=== PATIENT | female | born 1975 | race Caucasian/White ===

== ENCOUNTER 2019-04-12 13:28 | Day surgery (SDC) | payer BC, SELFPAY ==
--- NOTE | 2019-04-12 13:03 | DCINST_ITS ---
Discharge Diet: No Restrictions Discharge Activity: May not drive while taking narcotic pain medications., May Shower, - - no tub bathing, no swimming, no hot tub. May resume sexual activity in: 4-6 weeks Lifting Restrictions: 5 pounds for 4 weeks Additional Activity Instructions:: no exercise or strenuous activity. ok to walk up and down stairs. Call your doctor if your incision/area has: Continuous Slow Oozing, Sudden Increased Bleeding, Foul Smelling Discharge Call your doctor if you observe: Fever of 101 or Higher, Inability to urinate, Shortness of breath, Chest pain, Calf discomfort, Uncontrolled pain Allergies/Adverse Reactions: Allergies codeine Allergy (Verified 04/11/19 08:36) Unknown Penicillins Allergy (Verified 04/11/19 08:36) Unknown Medications to take at Discharge Ashroganda 1 tab PO DAILY 04/11/19 Cetirizine HCl [Zyrtec] 10 mg PO DAILY 04/11/19 Cholecalciferol (Vitamin D3) [Vitamin D3] 5,000 unit PO DAILY 04/11/19 Collegen +C 1 tab PO DAILY 04/11/19 Duloxetine Hcl [Cymbalta] 60 mg PO DAILY 04/11/19 Magnesium Oxide [Magnesium] 1,200 mg PO DAILY 04/11/19 Melatonin/Pyridoxine HCl (B6) [Melatonin 10 mg Tablet] 1 each PO QHS 04/11/19 Prasterone (Dhea) [Dhea] 30 mg PO DAILY 04/11/19 Progesterone, Micronized [Prometrium] 100 mg PO QHS 04/11/19 Ps100 1 cap PO TID 04/11/19 Reloea 1 tab PO DAILY 04/11/19 Riboflavin (Vitamin B2) [Vitamin B-2] 100 mg PO DAILY 04/11/19 Theanine [l-Theanine] 1 tab PO DAILY 04/11/19 Thyroid [[place] Thyroid] 60 mg PO DAILY 04/11/19 Topiramate [Trokendi Xr] 100 mg PO QHS 04/11/19 Orders to be completed after discharge: Partial Thromboplast Time Time Frame: 04/12/19, Location: Laboratory CBC-Complete Blood Cnt No Diff Time Frame: 04/12/19, Location: Laboratory Liver Profile Time Frame: 04/12/19, Location: Laboratory Prothrombin Time w/INR Time Frame: 04/12/19, Location: Laboratory Thyroid Stim Hormone (TSH) Time Frame: 04/12/19, Location: Laboratory ,Urine Time Frame: 04/12/19, Location: Laboratory Primary Care Physician: Elisabeth Butterfield NP-C [Primary Care Provider] - Test Results: Test results from this visit will be discussed in further detail at your follow- up appointment, if applicable. Please Follow Up With: Jasmin Ordaz MD When: 2 weeks, call office for appt. Proposed Discharge Date: 04/12/19
--- NOTE | 2019-04-12 13:03 | PCM.OPRPT ---
Problem List (1) KAYLENE (stress urinary incontinence, female) Status: Acute (2) Urethral hypermobility Status: Acute Report of Operation Date of Procedure: 04/12/19 Pre-Operative Diagnosis: stress urinary incontinence, urethral hypermobility Post-Operative Diagnosis: same Surgery/Procedure Performed:: midurethral sling, cystoscopy Description of Surgical Findings:: no mesh in urethra or bladder. flat sling. good position. Type of Anesthesia:: General Estimated Blood Loss (mL): 25cc Description of Procedure: The patient is a 43-year-old female who presented to the office with significant urinary incontinence. After further evaluation was determined that she has intrinsic sphincter deficiency and stress urinary incontinence. After discussing all the risk benefits and alternatives she agreed to proceed with mid urethral sling insertion. Patient was taken to the operating room and placed in the operating room table. Anesthesia monitored the head, neck, airway, IV access and vital signs throughout the case. Once anesthesia was a probably administered patient was placed into dorsal lithotomy in Trendelenburg position. She was prepped and draped in usual sterile fashion. A 16 [place] Cheema catheter was inserted to straight drain and the bladder was emptied. The mid urethra was injected submucosally for hydrostatic dissection and hemostatic control. A midline incision was made approximately 1.5 cm in length. Both sharp and blunt dissection was performed on either side of the urethra. Using the trochars, the alters mid urethral sling was inserted without difficulty into the bilateral obturator complexes. The sling was flat against the urethra without tension. The tensioning suture was cut. The midline incision was closed using running interlocking 2-0 Vicryl. A cystourethroscopy was then performed revealing no evidence of mucosal abnormality. There is no mesh identified within the urinary bladder or the urethra. A small amount of fluid was left in the bladder. The patient was then awakened and taken to the recovery room in good condition. There were no complications during this procedure. Grafts/Implants Used: Altis midurethral sling - Complications none - Admit VTE Documentation VTE Present on Admission: Yes VTE Mechan Device Prophylaxis: SCD's VTE Pharm Prophylaxis ordered?: No Reason prophylaxis not ordered:: Treatment Not Indicated
[2019-04-12 13:58] LABS: Internal QC Validated? YES +Cl - CLEAR BKGD; Pregnancy, Urine Negative Negative
[2019-04-12 14:00] VITALS: BP 92/58; PULSE 61; RESP 12; TEMP 37.6; O2SAT 100; BMI 25.0
[2019-04-12 14:03] LABS: Hematocrit 37.1 % (37-47); Hemoglobin 12.3 g/dl (12.0-15.0); Mean Corp Hgb Conc 33.2 g/gl (32-36); Mean Corpuscular Hgb 30.8 pg (27.0-32.0); Platelet Count 123 K/mm3 (150-450); RBC Distribution Width CV 12.4 % (11.6-14.6); RBC Distribution Width SD 40.9 fl (35.1-43.9); Red Blood Count 3.99 M/mm3 (4.2-5.4); White Blood Count 5.4 K/mm3 (4.4-11.0)
[2019-04-12 14:09] LABS: International Normalized Ratio 1.1; Prothrombin Time (Protime)PT. 14.3 SECONDS (11.7-14.9)
[2019-04-12 14:10] LABS: Partial Thromboplast Time 32.4 Seconds (24.1-36.2)
[2019-04-12 14:12] LABS: Scan Indicated on CBC? Y/N NO
[2019-04-12 14:25] LABS: AST(SGOT) 14 U/L (15-37); Alanine Aminotransfer ALT/SGPT 19 U/L (13-56); Albumin, Serum 3.7 g/dL (3.2-5.0); Alkaline Phosphatase 80 U/L (45-117); Bilirubin, Direct 0.25 mg/dL (0.00-0.30); Globulin 2.8 g/dL (2.2-4.2); Protein, Total 6.5 g/dL (6.4-8.2); Thyroid Stim Hormone (TSH) 1.69 uIU/mL (0.358-3.74)
[2019-04-12] MEDS: Ciprofloxacin 400 MG/200 ML BAG 200 MG IV (14:30)
[2019-04-12 15:32] VITALS: BP 82/38; BP 92/58; PULSE 65; RESP 14; TEMP 36.6; O2SAT 99
[2019-04-12 15:45] VITALS: BP 87/49; BP 92/58; PULSE 62; RESP 14; O2SAT 100
[2019-04-12 16:00] VITALS: BP 83/45; BP 92/58; PULSE 71; RESP 16; O2SAT 100
[2019-04-12 16:15] VITALS: BP 86/50; BP 92/58; PULSE 66; RESP 16; TEMP 36.5; O2SAT 100
--- NOTE | 2019-04-12 19:53 | SUR.PHASEII ---
18g steiner cath inserted per Dr's orders. 950cc clear yellow urine drained to gravity. Cath secure placed. pt clemente very well. pt and instructed on steiner removal, instructed to removed evening before bed. pt and verbalize understanding.
[2019-04-12 19:55] VITALS: BP 89/48; BP 92/58; PULSE 58; RESP 18; TEMP 37.2; O2SAT 100
== END 2019-04-12 19:57 | disposition home or self-care (01) ==
LOC: SDC 13:30 → AC 13:32
PROVIDERS: Anesthesiology; Family Provider Nurse Practitioner Family; PCP Nurse Practitioner Family; Referring Provider Urology; Visit Provider Urology
PROC: 0TJB8ZZ Inspection of Bladder, Via Natural or Artificial Opening Endoscopic (ICD-10-PCS; CPT 57288; principal; 2019-04-12 15:15)
DX: N39.3 Stress incontinence (female) (male) (principal); N36.41 Hypermobility of urethra; Z79.899 Other long term (current) drug therapy; E07.9 Disorder of thyroid, unspecified; G43.909 Migraine, unspecified, not intractable, without status migrainosus; N36.42 Intrinsic sphincter deficiency (ISD)
CPT/HCPCS: 57288; 36415; 80076; 81025; 84443; 85027; 85610; 85730; J7120; J0744; J2405

== ENCOUNTER 2020-03-23 15:13 | Emergency (ER) | payer BC, SELFPAY ==
[2020-03-23 15:14] VITALS: BP 115/60; PULSE 73; PULSE 74; RESP 18; TEMP 36.8; O2SAT 100; BMI 27.3
[2020-03-23 15:17] VITALS: BP 115/60; PULSE 74; RESP 18; TEMP 36.8; O2SAT 100
--- NOTE | 2020-03-23 15:37 | ED.VIS.GEN ---
History of Present Illness Chief Complaint: Complaint Detail of Chief Complaint: Left lower quadrant pain Informant: Patient Onset: Days Context: Gradual Onset Current Severity: Moderate Maximum Severity: Severe Narrative: Patient presents with left lower quadrant pain for the past 2 days. She also had haziness to her urine. She called her urologist and was started on Bactrim. Patient had a bladder sling placed a year ago. Patient reports worsened left lower quadrant pain that seems to wax and wane. She has had some chills. She denies change in bowel habits. She has tried to increase fluid intake but has not noted increased urine output. She denies other vaginal discharge. - Past Medical History (1) Endometriosis Status: Chronic (2) Hypothyroid Status: Chronic (3) GERD (gastroesophageal reflux disease) Status: Chronic Past Medical History - Allergies and Home Meds Allergies/Adverse Reactions: Allergies codeine Allergy (Verified 03/23/20 15:13) Unknown hydromorphone [From Dilaudid] Allergy (Verified 03/23/20 15:14) Low blood pressure MY HEART RATE DROPS TO NOTHING. Penicillins Allergy (Verified 03/23/20 15:13) Unknown Primary Care Physician: Elisabeth Butterfield NP-C [Primary Care Provider] - Doctors: Dr. Ordaz Prior records reviewed: Yes Surgical History: appendectomy, cholecystectomy Smoking Status: Never smoker Review of Systems General: Reports: Chills. Denies: Fever Eyes: Denies: Visual changes - bilaterally ENT: Denies: Bilateral ear pain Cardiovascular: Denies: Chest pain Respiratory: Denies: Dyspnea, Cough Gastrointestinal: Reports: Abdominal pain, Diarrhea. Denies: Nausea, Vomiting Genitourinary: Reports: - - Hazy urine Musculoskeletal: Denies: Back pain, Extremity Pain Skin: Denies: Rash Neurological: Denies: Headache Hematologic: Denies: Easy bruising Physical Exam Vital Signs/Narrative: Vital Signs Temp Pulse Resp BP Pulse Ox 03/23/20 15:17 98.3 F 74 18 115/60 100 03/23/20 15:14 98.3 F 74 18 115/60 100 Inital Vital Signs reviewed: Yes General: Well nourished, Well developed Head: Normocephalic ENT: Moist mucous membranes Neck: Supple Cardiovascular: Regular rate, Regular rhythm Respiratory: No distress, CTA bilaterally Abdomen: Soft, Tender - Significant tenderness in the left lower quadrant., Hypoactive bowel sounds. Negative for: Guarding, Rebound tenderness Extremities: Nontender Skin: Normal color Neurological: Alert, Oriented x3 Psychological: Normal affect Diagnostic/Tx/Re-eval Impressions Transvaginal US 03/23/20 15:40 IMPRESSION: 1. IUD in satisfactory position within otherwise normal uterus. 2. Bilateral ovarian cysts. 3. Mild to moderate free fluid in the posterior cul-de-sac. Electronically Signed: Joe Jaimes DO at 16:51 EDT Tel [phone], Service support , 03/23/20 15:40 Transvaginal Non- [US] Stat Laboratory Results 03/23/20 03/23/20 03/23/20 16:05 16:06 16:06 WBC 4.9 RBC 3.90 L Hgb 12.1 Hct 36.8 L MCV 94.4 MCH 31.0 MCHC 32.9 RDW Std Deviation 44.1 H RDW Coeff of Lu 12.8 Plt Count 146 L MPV 12.8 H Immature Gran % (Auto) 0.200 Neut % (Auto) 67.6 Lymph % (Auto) 19.4 [place] % (Auto) 8.5 Eos % (Auto) 3.9 Baso % (Auto) 0.4 Absolute Neuts (auto) 3.3 Absolute Lymphs (auto) 0.94 Nucleated RBC % 0 Sodium 137 Potassium 3.4 L Chloride 107 Carbon Dioxide 23.0 Anion Gap 7 BUN 9 Creatinine 1.05 H Estim Creat Clear Calc 66.49 Est GFR (MDRD) Af Amer 73 Est GFR (MDRD) Non-Af 60 BUN/Creatinine Ratio 8.6 L Glucose 83 Calcium 8.3 L Serum , Qual Urine Color Yellow Urine Clarity Sl. Cloudy Urine pH 6.5 Ur Specific [place] 1.005 Urine Protein Negative Urine Glucose (UA) Normal Urine Ketones Negative Urine Occult Blood Negative Urine Nitrite Negative Urine Bilirubin Negative Urine Urobilinogen Normal Ur Leukocyte Esterase 25 H Urine RBC 0 SEEN Urine WBC 0-5 SEEN Ur Squamous Epith Cells 0-5 SEEN Urine Bacteria 0 SEEN Urine Mucus 0 SEEN 03/23/20 16:06 WBC RBC Hgb Hct MCV MCH MCHC RDW Std Deviation RDW Coeff of Lu Plt Count MPV Immature Gran % (Auto) Neut % (Auto) Lymph % (Auto) [place] % (Auto) Eos % (Auto) Baso % (Auto) Absolute Neuts (auto) Absolute Lymphs (auto) Nucleated RBC % Sodium Potassium Chloride Carbon Dioxide Anion Gap BUN Creatinine Estim Creat Clear Calc Est GFR (MDRD) Af Amer Est GFR (MDRD) Non-Af BUN/Creatinine Ratio Glucose Calcium Serum , Qual NEGATIVE Urine Color Urine Clarity Urine pH Ur Specific [place] Urine Protein Urine Glucose (UA) Urine Ketones Urine Occult Blood Urine Nitrite Urine Bilirubin Urine Urobilinogen Ur Leukocyte Esterase Urine RBC Urine WBC Ur Squamous Epith Cells Urine Bacteria Urine Mucus - Medical Decision Making Patient was given morphine and Zofran for pain and nausea. She does have evidence of bilateral ovarian cysts along with mild to moderate free fluid in the pelvis. I spoke with Dr. Bunch, on-call for CONTRACT ASSISTANT. Patient will be given [place] to help control pain. She will follow-up in the office. ED Disposition - Plan for ED Patient: Disposition: Home or Assisted Living Diagnosis: Ovarian cyst Instructions: ED Cyst Ovarian Prescriptions: Hydrocodone Bitart/Apap 5-325 [[place] 5MG-325MG] 1 tablet PO Q6H PRN PRN 3 Days #10 tablet PRN Reason: Pain Transmission Status: Sent to [id number] Referrals: Elisabeth Butterfield NP-C [Primary Care Provider] - Sommer Bunch MD [STAFF PHYSICIAN] - 3-5 Days if not improving
--- NOTE | 2020-03-23 15:40 | US_ITS ---
STUDY: ULTRASOUND TRANSVAGINAL CLINICAL: Female, 44 years old. A left-sided pelvic pain. History of IUD. TECHNIQUE: Transvaginal COMPARISON: None. FINDINGS: The uterus is anteverted and midline, measuring 8.2 x 4.4 x 3.9 cm. There is no evidence of myometrial mass. Endometrium is 6 mm in thickness and hyperechoic. There are no endometrial masses, and there is no fluid in the endometrial cavity. There is an IUD in the fundal endometrium. Normal uterine cervix. Normal right ovary, measuring 3.2 x 3.0 x 2.7 cm. There is a 2.1 x 2.6 x 2.3 cm dominant cyst. Normal vascularity on Doppler imaging. Normal left ovary, measuring 6.0 x 4.5 x 2.7 cm. There is a 2.9 x 2.9 x 2.4 cm cyst as well as a 3.4 x 2.4 x 2.5 cm cyst. Normal vascularity on Doppler imaging. There is mild to moderate free fluid in the pelvis. Polycystic ovary disease: No. US/Transvaginal Non- IMPRESSION: 1. IUD in satisfactory position within otherwise normal uterus. 2. Bilateral ovarian cysts. 3. Mild to moderate free fluid in the posterior cul-de-sac. Electronically Signed: Joe Jaimes DO at 16:51 EDT Tel [phone], Service support ,
[2020-03-23] MEDS: 0.9% Normal Saline 1,000 ML 150 ML IV (16:01)
[2020-03-23] MEDS: Morphine 2 MG/ML Syringe IV (16:01)
[2020-03-23] MEDS: Ondansetron 4 MG/2 ML Vial IV (16:01)
[2020-03-23 16:17] VITALS: BP 95/53; PULSE 61; RESP 12; TEMP 36.8; O2SAT 98
[2020-03-23 16:22] LABS: Bacteria 0 SEEN /hpf (None Seen); Mucous, Urine 0 SEEN /hpf (<or=2+); Red Blood Cells-Urine 0 SEEN /hpf (0-5)
[2020-03-23 16:23] LABS: Absolute Lymphocyte Count 0.94 X10^3/uL (0.83-4.51); Absolute Neutrophil Count 3.3 X10^3/uL (2.0-7.7); Basophil# 0.02 X10^3/uL; Basophil% 0.4 % (0-1); Eosinophil# 0.19 X10^3/uL; Eosinophils% 3.9 % (0-5); Hematocrit 36.8 % (37-47); Hemoglobin 12.1 g/dL (12.0-15.0); Lymphocyte # 0.94 X10^3/ul (4.0); Lymphocyte % 19.4 % (19-41); Mean Corp Hgb Conc 32.9 g/dL (32-36); Mean Corpuscular Volume 94.4 fL (81-99); Mean Platelet Vol. 12.8 fl (6.2-12.0); Monocyte# 0.41 X10^3/uL; Monocyte% 8.5 % (0-10); NRBC Flagged by Analyzer 0 % (0-5); Neutrophil # 3.28 X10^3/uL (2.7-7.7); Neutrophil % 67.6 % (47-70); Platelet Count 146 K/mm3 (150-450); RBC Distribution Width CV 12.8 % (11.6-14.6); RBC Distribution Width SD 44.1 fl (35.1-43.9); White Blood Count 4.9 K/mm3 (4.4-11.0)
[2020-03-23 16:24] LABS: Color, Urine Yellow (Yellow); Glucose, Dipstick Normal (Normal); Ketone-Dipstick Negative (Negative); Leukocyte Esterase-Dipstick 25 /ul (Negative); Nitrite-Dipstick Negative (Negative); Occult Blood-Urine Negative /ul (Negative); Protein-Dipstick Negative (Negative); Specific Gravity, Urine 1.005 (1.002-1.030); Urine Bilirubin Dipstick Negative (Negative); Urine Clarity Sl. Cloudy (Clear); Urine Urobilinogen Normal (Normal); Urine pH 6.5 (5.0 - 8.0)
[2020-03-23 16:35] LABS: Anion Gap 7 (5-15); BUN 9 mg/dL (7-18); BUN/Creat Ratio 8.6 RATIO (10-20); Calcium,Total 8.3 mg/dL (8.5-10.1); Chloride 107 mmol/L (98-107); Creatinine, Serum 1.05 mg/dL (0.55-1.02); EST Glomerular Filtration Rate 60 mL/min (>60); Est Glom Filt Rate - Afr Amer 73 mL/min (>60); Estimated Creatinine Clearance 66.49 ml/min; Glucose 83 mg/dL (74-106); Potassium 3.4 mmol/L (3.5-5.1); Sodium Level 137 mmol/L (136-145)
[2020-03-23 16:37] LABS: Internal QC Validated? YES +Cl - CLEAR BKGD; Pregnancy, Serum, hCG Quali. NEGATIVE Negative
[2020-03-23 16:56] LABS: Squamous Epithelial Cells - UA 0-5 SEEN /hpf (5-10); White Blood Cells 0-5 SEEN /hpf (0-5)
[2020-03-23 17:00] VITALS: BP 105/63; PULSE 65; RESP 12; TEMP 36.7; O2SAT 98
[2020-03-23 17:13] VITALS: BP 105/63; PULSE 65; RESP 18; O2SAT 98
[2020-03-23] MEDS: Morphine 4 MG/ML Syringe IV (17:19)
== END 2020-03-23 18:06 | disposition home or self-care (01) ==
PROVIDERS: Emergency Provider Emergency Medicine; PCP Nurse Practitioner Family
DX: N83.201 Unspecified ovarian cyst, right side (principal); N83.202 Unspecified ovarian cyst, left side; N80.9 Endometriosis, unspecified; Z97.5 Presence of (intrauterine) contraceptive device; E03.9 Hypothyroidism, unspecified; K21.9 Gastro-esophageal reflux disease without esophagitis; Z79.899 Other long term (current) drug therapy
CPT/HCPCS: 76830; 80048; 81001; 84703; 85025; 93976; 96361; 96374; 96375; 96376; 99283; J7030; A4216; J2405

== ENCOUNTER 2021-12-19 13:39 | Outpatient (CLI) | payer BC, SELFPAY ==
--- NOTE | 2021-12-19 13:43 | RAD_ITS ---
STUDY: X-RAY - ABDOMEN/PELVIS REASON FOR EXAM: Female, 46 years old. KIDNEY STONES TECHNIQUE: Single AP view of the abdomen / pelvis. COMPARISON: Comparison is made with prior study dated 05/29/2015. FINDINGS: There is an abundance of fecal material throughout the colon. The patient is status post cholecystectomy. An IUD is seen within the pelvis. Normal soft tissue structures. Normal visualized osseous structures. RAD/Abdomen Single View IMPRESSION: Large amount of fecal material is seen in the colon. Electronically Signed: Mayank Mesa MD at 14:52 EST , Service support ,
== END 2021-12-19 23:59 | disposition short-term general hospital (02) ==
PROVIDERS: PCP Nurse Practitioner Family; Referring Provider Urology; Visit Provider Urology
DX: N20.0 Calculus of kidney (principal)
CPT/HCPCS: 74018

== ENCOUNTER → 2024-04-26 | Outpatient (CLI) | payer OTHER, SELFPAY ==
--- NOTE | 2024-04-26 17:00 | US_ITS ---
INDICATION: UTI EXAMINATION: Ultrasound US Kidney(s) complete (eg, kidneys and bladder) TECHNIQUE: Navarro scale and color doppler images were obtained of the kidneys. COMPARISON: None. FINDINGS: RIGHT KIDNEY: 11.9 cm length. There is mild fullness of the renal pelvis, no hydronephrosis. Small echogenic focus likely a calculus, 10 mm. LEFT KIDNEY: 10.6 cm length. There is mild fullness of the renal pelvis, no hydronephrosis. Several small calculi, largest is 7 mm. URINARY BLADDER: Distended. Bladder volume 645 mL. Postvoid volume 6 mL. No wall thickening or debris. Left ureteral jet was visualized, the right jet was not visualized US/Kidney and Bladder IMPRESSION: Bilateral nonobstructing intrarenal calculi. No hydronephrosis. Minimal postvoid bladder residual. Electronically Signed: Roshni López MD at 8:15 EDT ,
== END | disposition home or self-care (01) ==
LOC: US 16:56
PROVIDERS: Referring Provider Urology; Visit Provider Urology
DX: N39.0 Urinary tract infection, site not specified (principal)
CPT/HCPCS: 76770

== ENCOUNTER → 2024-05-12 | Outpatient (CLI) | payer OTHER, SELFPAY ==
--- NOTE | 2024-05-12 13:48 | CT_ITS ---
STUDY: CT ABDOMEN AND PELVIS WITHOUT CONTRAST REASON FOR EXAM: Female, 48 years old. Bilateral kidney stones. RADIATION DOSAGE (If Supplied By Facility): CTDIvol = ( 9.90 ) mGy, DLP = ( 474.71 ) mGycm TECHNIQUE: Transaxial images were obtained from the dome of the diaphragm to the symphysis pubis without oral contrast, and without intravenous contrast. Sagittal and coronal images were reconstructed. Individualized dose optimization techniques were used for this CT. COMPARISON: None. FINDINGS: The visualized lung bases are unremarkable. The visualized portions of the heart are within normal limits. Normal liver. There are surgical clips in the gallbladder fossa consistent with a prior cholecystectomy. Normal spleen. Normal pancreas. Normal bilateral adrenal glands. Normal right kidney. There is a 1.9 mm calculus in the anterior lower pole calyx of the left kidney. There is also evidence of a 2.7 mm nonobstructive calculus in the lower posterior calyx of the left kidney. Normal visualized stomach. Normal small intestine. Normal colon. There are surgical clips in the region of the appendix consistent with a prior appendectomy. Normal abdominal aorta. Normal inferior vena cava. Normal retroperitoneum. The bladder is not adequately distended at this time. IUD is seen within the uterus. Normal abdominal wall. Normal osseous structures. CT/Abdomen/Pelvis without Cont IMPRESSION: Nonobstructive left intrarenal calculi. Status post cholecystectomy and appendectomy. IUD is seen within the uterus. Electronically Signed: Mayank Mesa MD at 15:19 EDT ,
== END | disposition home or self-care (01) ==
LOC: CT 13:47
PROVIDERS: Referring Provider Urology; Visit Provider Urology
DX: N20.0 Calculus of kidney (principal)
CPT/HCPCS: 74176

== ENCOUNTER 2024-06-16 11:06 | Day surgery (SDC) | payer OTHER, SELFPAY ==
[2024-06-16] VITALS (8 sets, daily range): BP systolic 90–117; BP diastolic 59–78; PULSE 52–62; RESP 14–18; TEMP 36.1–36.4; O2SAT 100; BMI 28.3
--- NOTE | 2024-06-16 | CALC_PTH ---
PATIENT: AMOL ARIAS LOC: [facility] [place] U#:[id number] AGE/SX: 48/F ROOM: RE06/16/[address]: Dr. Jasmin Ordaz MD : 1975 BED: DIS: 06/16/2024 SPEC #: [id number] RECD: 06/16/24 13:24 STATUS: BALDO AMADEO #: [id number] OMERO: 06/16/24 00:[address]: Jasmin Ordaz DEPT: SURGICAL PATHOLOGY RECD BY: Aldo Lewis ENTERED: 06/16/24 13:24 SP TYPE: Calculi OTHR DR: No Primary Care Phys Tissues: CALCULI Procedures: Surgery Specimen Level I HEADER OPERATION: Bilateral ureteroscopy, stone basket extraction PRE-OP DIAGNOSIS: Calculus of kidney, flank pain TISSUE SUBMITTED: Left renal calculi GROSS DIAGNOSIS Fragments of stone, clinically left renal calculi (gross only). COMMENT The calculi are submitted in its entirety for chemical stone analysis. The results from this study will be reported separately. GROSS DESCRIPTION Received without fixative labeled with the patient's name and designated left ureteral calculi. The specimen consists of two fragments of black stone measuring in aggregate 0.4 x 0.2 x 0.1cm. The entire specimen is submitted for stone analysis. Raymundo 06/16/2024 CPT: 90554
[2024-06-16] MEDS: Lactated Ringers 1,000 ML 15 ML IV (11:31)
--- NOTE | 2024-06-16 11:39 | PRE.ANES_ITS ---
ASA Classification* ASA Classification ASA Classification: 2 Assessment & Plan Anesthesia* Anesthesia Assessment Anesthesia Assessment: Discussed sedation and/or anesthesia options, risks, benefits, and alternatives with patient/parents/legal guardian/POA. Questions invited. The patient/parents/legal guardian/POA seems to understand and agrees to proceed with anesthesia plan. Reviewed the physical assessment, medical history, allergy history and patient home medications list prior to surgery/procedure/anesthetic and documented any changes. Performed airway and anesthesia risk assessments. Anesthesia Type Anesthesia Type: General (see pre anesthesia written record for full assessment) Anesthesia Focused Assessment* Temperature: 97.1 F Pulse Rate: 62 Blood Pressure: 115/70 Respiratory Rate: 16 Pulse Ox: 100 Airway Assessment Mouth opens: >3 cm Mallampati Score: II Focused Labs Anesthesia Preop lab: CBC WBC 4.9 K/mm3 (4.4-11.0) 03/23/20 16:06 RBC 3.90 M/mm3 (4.2-5.4) L 03/23/20 16:06 Hgb 12.1 g/dL (12.0-15.0) 03/23/20 16:06 Hct 36.8 % (37-47) L 03/23/20 16:06 Plt Count 146 K/mm3 (150-450) L 03/23/20 16:06 CHEMISTRY Potassium 3.4 mmol/L (3.5-5.1) L 03/23/20 16:06 Sodium 137 mmol/L (136-145) 03/23/20 16:06 BUN 9 mg/dL (7-18) 03/23/20 16:06 Creatinine 1.05 mg/dL (0.55-1.02) H 03/23/20 16:06 Glucose 83 mg/dL (74-106) 03/23/20 16:06 TSH 1.69 uIU/mL (0.358-3.74) 04/12/19 13:56 COAG PT 14.3 SECONDS (11.7-14.9) 04/12/19 13:56 Urine Test Negative Negative 04/12/19 13:53 Pre-Assessment Diagnosis/Proposed Procedure Planned Operative Procedure(s): Cysto, BL ureteroscopy, laser lithotripsy, stone basket extraction, ureteral stents Anesthesia History Anesthesia History - strategic partnership manager: Anesthesia History - strategic partnership manager Hx Hospitalization No 06/10/24 11:26 Any Problems With Anesthesia Yes: N/V 06/10/24 11:26 Cholinesterase deficiency No 06/10/24 11:26 You/Your Family Experience No 06/10/24 11:26 fever (hyperthermia) with Relationship Recent Exposure to Contagious No 06/16/24 11:27 Disease Does patient have nerve No 06/10/24 11:26 stimulator Patient instructed to have device shut off --Does patient have Pacemaker No 06/16/24 11:27 or ICD? When Was Last Pacemaker Check QUESTION #4 FULL TEXT: You/Your Family Experience fever (hyperthermia) with Anesthesia Last Oral Intake Last Oral intake: Last Oral Intake NPO since 00:00 06/16/24 11:27 Meds taken in AM with sips of Yes 06/16/24 11:27 water? Meds patient instructed to take am of surgery PONV PONV - strategic partnership manager: PONV - strategic partnership manager Female Yes 06/10/24 11:26 HX of Motion Sickness Yes 06/10/24 11:26 HX of N/V After Surgery Yes 06/10/24 11:26 Non-Smoker Yes 06/10/24 11:26 Duration of Surgery greater Yes 06/10/24 11:26 than 60 minutes Number of Risk Factors 5 06/10/24 11:26 PONV Score Severe Risk 06/10/24 11:26 Height & Weight Height & Weight: Anesthesia: Height & Weight Height 5 ft 6 in 06/16/24 11:27 Weight: 79.56 kg 06/16/24 11:27 Body Mass Index (BMI) 28.3 06/16/24 11:27 Respiratory Assessment Respiratory Assessment - strategic partnership manager: Respiratory Tract Infection Hx - strategic partnership manager Hx Respiratory Tract Infection No 06/10/24 11:26 STOP Sleep Apnea STOP Sleep Apnea - strategic partnership manager: STOP Sleep Apnea - strategic partnership manager Hx Hypertension No 06/10/24 11:26 Hx Sleep Apnea No 06/10/24 11:26 CPAP BIPAP Do you snore loudly (louder No 06/10/24 11:26 than talking or can be heard Do you often feel tired/ No 06/10/24 11:26 fatigued/ sleepy during daytime? Has anyone observed you stop No 06/10/24 11:26 breathing during sleep? STOP Results Negative 06/10/24 11:26 QUESTION #5 FULL TEXT : Do you snore loudly (louder than talking or can be heard through closed doors)? Tobacco Use History Tobacco Use History - strategic partnership manager: Tobacco Use History - strategic partnership manager Tobacco Use Smoking Status Never smoker 06/10/24 11:26 Hx Tobacco Use No 06/10/24 11:26 Years Smoking Packs Smoked per Day Smoking Cessation Date was within the last 15 years Hx Smoking Cessation Date Hx Smoking Cessation Counseling Hematologic Medial History Hematologic Hx - strategic partnership manager: Hematologic Medical Hx - credit support specialist Hx of Blood Transfusion No 06/10/24 11:26 Hx of Transfusion in last 3 No 06/10/24 11:26 Months Date of Last Transfusion (if within last 3 months) Ever experience any problems No 06/10/24 11:26 with transfusion(s)? Specify any problems Hx of Preganancy in last 3 N/A 06/10/24 11:26 Months Nurse Filling Out Transfusion SFRANTZ 06/10/24 11:26 & Questions: Date: 06/10/24 06/10/24 11:26 Time: 11:27 06/10/24 11:26 Patient unable to answer at this time (ie. confused, unrespo /Reproduction History /Reproductive History - strategic partnership manager: /Reproductive Hx- strategic partnership manager Hx Now No 06/10/24 11:26 Gestational Age (in weeks): EDC: Hx Hx Para Hx Section SAB No 06/10/24 11:26 Active Medications Active Medications: Current Medications Generic Name Dose Route Start Last Admin Trade Name Raymundo PRN Reason Stop Dose Admin Ciprofloxacin 400 mg in 200 mls @ 200 mls/hr 06/16/24 12:40 Cipro IV 06/16/24 13:39 PREOP ONE Lactated Ringer's 1,000 mls @ 15 mls/hr 06/16/24 11:15 06/16/24 11:31 IV 15 mls/hr .Q48H LEROY Administration PFSH Medical History Wears glasses Post-menopausal History of steroid therapy Thyroid disease History of kidney stones Migraine headache Dietary restriction Non-smoker Home Medications ?Medication ?Instructions ?Recorded ?Last Taken ?Type Collegen +C 1 tab PO DAILY 04/11/19 Unknown History cholecalciferol (vitamin D3) 125 5,000 unit PO DAILY 04/11/19 Unknown History mcg (5,000 unit) capsule prasterone (dhea) 50 mg capsule 25 mg PO DAILY 04/11/19 Unknown History (DHEA) topiramate 100 mg capsule,extended 100 mg PO QHS migraines 04/11/19 Unknown History release 24 hr (Trokendi XR) desvenlafaxine succinate 25 mg 75 mg PO DAILY migraines 06/10/24 Unknown History tablet,extended release 24 hr (Pristiq) eptinezumab-jjmr 100 mg/mL 300 mg IV .COMPLEX [id number] 06/10/24 Unknown History intravenous solution (Vyepti) eptinezumab-jjmr 100 mg/mL 300 mg IV .[id number] migraines 06/10/24 Unknown History intravenous solution (Vyepti) hydroxyzine HCl 25 mg tablet 12.5 - 25 mg PO Q8H PRN PRN 06/10/24 Unknown History migraine headache levothyroxine 88 mcg tablet 88 mcg PO DAILY 06/10/24 06/16/24 History magnesium glycinate 100 mg (as 100 mg PO DAILY 06/10/24 Unknown History glycinate) tablet (Mag Glycinate) naratriptan 2.5 mg tablet 2.5 mg PO DAILY PRN 06/10/24 Unknown History Allergy/AdvReac Type Severity Reaction Status Date / Time codeine Allergy Unknown Verified 06/16/24 11:27 hydromorphone (From Dilaudid) Allergy Low blood Verified 06/16/24 11:27 pressure Penicillins Allergy Unknown Verified 06/16/24 11:27 Surgical History History of cholecystectomy History of appendectomy Social History Smoking Status: Never smoker Review of Systems (Anesthesia) ROS Narrative System reviewed and no additional complaints, except as documented.
[2024-06-16] MEDS: Ciprofloxacin 400 MG/200 ML BAG 200 MG IV (12:09)
--- NOTE | 2024-06-16 12:59 | PCM.POST.ANE ---
Anesthesia: Postop Eval I Current Vital Signs Temperature: 97.5 F Pulse Rate: 58 Blood Pressure: 117/74 Respiratory Rate: 14 Pulse Ox: 100 Oxygen Delivery Method: Room Air Assessment Airway patent: Yes Spontaneous unlabored respirations: Yes Mental status: Awake and Calm nausea: No Vomiting: No Anesthesia Complication: No Fluid Hydration Crystalloid volume administer (ml): 1,000 Total IV fluid infused: 1,000 Progress Note Anesthesia document: Postop Eval 1 completed: Yes
--- NOTE | 2024-06-16 13:10 | EX.PCM.DISCH ---
Discharge Instructions Diet Discharge Diet: No restrictions Activity Discharge Activity: Return to Normal Activity Dressing / Incision Call your doctor if you observe: Fever of 101 or Higher, Inability to urinate and Inability to have a bowel movement Follow Up Care Please Follow Up With: Jasmin Ordaz MD When: The office will call to make follow up arrangements. Test Results: Test results from this visit will be discussed in further detail at your follow-up appointment, if applicable. Discharge Plan Admission Attending Provider: Jasmin Ordaz Primary Care Provider: Tania Hickman Primary Instructions Print Language: Ukrainian Discharge Orders/Prescriptions Prescriptions: New phenazopyridine [Pyridium] 200 mg tablet 200 mg PO TID PRN PRN (Reason: Bladder Spasms) 7 Days Qty: 30 0RF oxycodone-acetaminophen [Percocet] 5-325 mg tablet 1 tab PO Q8H PRN (Reason: pain) 3 Days Qty: 10 0RF nitrofurantoin monohyd/m-cryst [Macrobid] 100 mg capsule 100 mg PO BID Qty: 6 0RF Rx Instructions: must administer with a meal/food Continued DHEA 50 MG capsule 25 mg PO DAILY cholecalciferol (vitamin D3) 5,000 UNIT capsule 5,000 unit PO DAILY topiramate [Trokendi XR] 100 MG capsule,extended release 24hr 100 mg PO QHS Collegen +C 1 tab PO DAILY desvenlafaxine succinate [Pristiq] 25 mg tablet extended release 24 hr 75 mg PO DAILY Mag Glycinate 100 mg tablet 100 mg PO DAILY levothyroxine 88 mcg tablet 88 mcg PO DAILY Vyepti 100 mg/mL solution 300 mg IV .COMPLEX Patient Comments: migraines Rx Instructions: 300 mg intravenously; hydroxyzine HCl 25 mg tablet 12.5 - 25 mg PO Q8H PRN PRN (Reason: migraine headache) Vyepti 100 mg/mL solution 300 mg IV .[id number] naratriptan 2.5 mg tablet 2.5 mg PO DAILY PRN Patient Comments: may repeat x1 Referrals / Follow Up: Care PhysicianTania Primary [Primary Care Provider] - Disposition Disposition (needs filled in before D/C Order can be placed): Home, Self Care
--- NOTE | 2024-06-16 13:20 | PCM.OPRPT ---
Report of Operation Date of Procedure: 06/16/24 Pre-Operative Diagnosis: Right flank pain, left kidney stones Post-Operative Diagnosis: Same Surgery/Procedure Performed:: Cystoscopy, bilateral ureteroscopy, left stone basket extraction Surgeon: Jasmin Ordaz Type of Anesthesia: General Specimen's removed: Kidney stone x 2 Description of Procedure: The patient is a 48-year-old female with a history of stones who presented to the office with a CT scan revealing left kidney stones and a possible right ureteral calculus. We discussed the options and she decided to proceed with surgical intervention. Informed consent was obtained. She was taken to the operating room and placed on the operating room table. Anesthesia monitored the head, neck, airway, IV access and vital signs throughout the case. Once anesthesia was appropriately administered she was placed into dorsolithotomy position was prepped and draped in usual sterile fashion. The cystoscope was inserted through the urethra under direct visualization into the urinary bladder. Bilateral ureteral orifices were located in the correct anatomic position. There were no areas of mass, lesion, ulceration or foreign body. Specifically the urethra was clear from any exposure of her mid urethral sling as well. The right ureteral orifice was intubated with 2 separate 0.035 Glidewire's. The flexible ureteroscope was passed over one of the wires and easily advanced all the way to the renal pelvis with no evidence of a stone, and foreign body, or mass. There was no evidence of dilation of the collecting system. There is no erythema. The ureteroscope was used to visualize the entire length of the ureter as the scope was removed with the same findings. This process was then repeated on the patient's left side. In the calyces, 2 separate stones were identified and removed with a stone basket. There was no difficulty in removing the small stones and the decision was made to leave her without a ureteral stent. The entire length of the ureter was visualized with no other findings. The patient's bladder was then emptied and the case was terminated. She was awakened and taken to the recovery room in good condition. There were no complications during this procedure. Grafts/Implants Used: None Complications None Admit VTE Documentation VTE Present on Admission: Yes VTE Mechan Device Prophylaxis: SCD's VTE Pharm Prophylaxis ordered?: No Reason prophylaxis not ordered:: Treatment Not Indicated
[2024-06-16] MEDS: Acetaminophen 325 MG Tablet PO (14:16)
[2024-06-16] MEDS: oxyCODONE 5 MG Tablet PO (14:16)
--- NOTE | 2024-06-17 11:09 | POSTOPAN2_ITS ---
Anesthesia Postop Eval I Sum Postop Eval Completion status Anesthesia document: Postop Eval 1 completed: Yes Anesthesia Postop Eval I Summary Anesthesia Postop Eval I Summary: Anesthesia Postop Eval I: Assessment Summary Airway patent Yes 06/16/24 13:00 TARIFF [email or web address] Spontaneous unlabored Yes 06/16/24 13:00 TARIFF [email or web address] [email or web address] respirations Mental status Awake,Calm 06/16/24 13:00 TARIFF [email or web address] nausea No 06/16/24 13:00 TARIFF [email or web address] Vomiting No 06/16/24 13:00 TARIFF [email or web address] Anesthesia Postop Eval I: Fluid Summary Crystalloid volume administer 1,000 06/16/24 13:00 TARIFF [email or web address] (ml) Colloids volume administered ( ml) Blood Product volume administered (ml) Total IV fluid infused 1,000 06/16/24 13:00 TARIFF [email or web address] Anesthesia Postop Eval I: Summary Notes Anesthesia Complication No 06/16/24 13:00 TARIFF [email or web address] Anesthesia Complication Comment: Post-operative progress note Anesthesia: Postop Eval II Evaluation Mental status: Awake and Calm Pain Level: 1 nausea: No Vomiting: No Complications Anesthesia Complication: No
--- NOTE | 2024-06-17 11:09 | PCM.POSTANE2 ---
Anesthesia Postop Eval I Sum Postop Eval Completion status Anesthesia document: Postop Eval 1 completed: Yes Anesthesia Postop Eval I Summary Anesthesia Postop Eval I Summary: Anesthesia Postop Eval I: Assessment Summary Airway patent Yes 06/16/24 13:00 [email or web address] Spontaneous unlabored Yes 06/16/24 13:00 [email or web address] respirations Mental status Awake,Calm 06/16/24 13:00 [email or web address] nausea No 06/16/24 13:00 [email or web address] Vomiting No 06/16/24 13:00 [email or web address] Anesthesia Postop Eval I: Fluid Summary Crystalloid volume administer 1,000 06/16/24 13:00 [email or web address] (ml) Colloids volume administered ( ml) Blood Product volume administered (ml) Total IV fluid infused 1,000 06/16/24 13:00 [email or web address] Anesthesia Postop Eval I: Summary Notes Anesthesia Complication No 06/16/24 13:00 [email or web address] Anesthesia Complication Comment: Post-operative progress note Anesthesia: Postop Eval II Evaluation Mental status: Awake and Calm Pain Level: 1 nausea: No Vomiting: No Complications Anesthesia Complication: No
== END 2024-06-16 14:53 | disposition home or self-care (01) ==
LOC: SDC 11:08 → AC 11:09
PROVIDERS: Referring Provider Urology; Visit Provider Urology
PROC: 0TJ98ZZ Inspection of Ureter, Via Natural or Artificial Opening Endoscopic (ICD-10-PCS; CPT 52352; principal; 2024-06-16 12:30)
DX: N20.0 Calculus of kidney (principal); E03.9 Hypothyroidism, unspecified; Z79.899 Other long term (current) drug therapy
CPT/HCPCS: 52310; 00918; 76000; 82360; 88300; J7120; J0744; J2405

== ENCOUNTER → 2025-05-02 | Outpatient (CLI) | payer OTHER, SELFPAY ==
--- NOTE | 2025-05-02 10:48 | RAD_ITS ---
PROCEDURE: ABDOMEN SINGLE VIEW 05/02/2025 REASON FOR EXAM: KUB- KIDNEY STONE TECHNIQUE: Single view abdomen. COMPARISON: None. FINDINGS: There is a normal nonobstructive bowel gas pattern. There are no abnormal soft tissue calcifications projected over either renal outline or along the path of either ureter. There are cholecystectomy clips in the right upper quadrant of the abdomen. There is an IUD in the pelvis. There are no significant bony abnormalities. RAD/Abdomen Single View IMPRESSION: No evidence of nephrolithiasis or ureterolithiasis. Other findings as noted. Reading Location: [id number]
== END | disposition home or self-care (01) ==
LOC: MTRAD 10:47
PROVIDERS: Referring Provider Urology; Visit Provider Urology
DX: N20.0 Calculus of kidney (principal)
CPT/HCPCS: 74018

== ENCOUNTER 2025-05-04 10:22 | Day surgery (SDC) | payer OTHER, SELFPAY ==
[2025-05-04] VITALS (11 sets, daily range): BP systolic 85–112; BP diastolic 53–84; PULSE 50–74; RESP 14–20; TEMP 36.3–36.6; O2SAT 16–100; BMI 27.7
[2025-05-04] MEDS: Lactated Ringers 1,000 ML 15 ML IV (10:59)
--- NOTE | 2025-05-04 11:09 | PCM.PRE.AN2 ---
ASA Classification* ASA Classification ASA Classification: 2 Assessment & Plan Anesthesia* Anesthesia Assessment Anesthesia Assessment: Discussed sedation and/or anesthesia options, risks, benefits, and alternatives with patient/parents/legal guardian/POA. Questions invited. The patient/parents/legal guardian/POA seems to understand and agrees to proceed with anesthesia plan. Reviewed the physical assessment, medical history, allergy history and patient home medications list prior to surgery/procedure/anesthetic and documented any changes. Performed airway and anesthesia risk assessments. Anesthesia Type Anesthesia Type: General History Source History Obtained from:: Patient and Chart Anesthesia Focused Assessment* Temperature: 97.4 F Pulse Rate: 69 Blood Pressure: 112/83 Respiratory Rate: 16 Pulse Ox: 100 Oxygen Delivery Method: Room Air Airway Assessment Mouth opens: >3 cm Mallampati Score: I Teeth Condition: Intact Neck Range of motion (ROM): Full ROM Comment: Permanent retainer Focused Labs Anesthesia Preop lab: CBC WBC 4.9 K/mm3 (4.4-11.0) 03/23/20 16:06 03/23/20 RBC 3.90 M/mm3 (4.2-5.4) L 03/23/20 16:06 03/23/20 Hgb 12.1 g/dL (12.0-15.0) 03/23/20 16:06 03/23/20 Hct 36.8 % (37-47) L 03/23/20 16:06 03/23/20 Plt Count 146 K/mm3 (150-450) L 03/23/20 16:06 03/23/20 CHEMISTRY Potassium 3.4 mmol/L (3.5-5.1) L 03/23/20 16:06 03/23/20 Sodium 137 mmol/L (136-145) 03/23/20 16:06 03/23/20 BUN 9 mg/dL (7-18) 03/23/20 16:06 03/23/20 Creatinine 1.05 mg/dL (0.55-1.02) H 03/23/20 16:06 03/23/20 Glucose 83 mg/dL (74-106) 03/23/20 16:06 03/23/20 TSH 1.69 uIU/mL (0.358-3.74) 04/12/19 13:56 04/12/19 COAG PT 14.3 SECONDS (11.7-14.9) 04/12/19 13:56 04/12/19 Urine Test Negative Negative 04/12/19 13:53 04/12/19 Pre-Assessment Diagnosis/Proposed Procedure Planned Operative Procedure(s): CYSTO, URETOSCOPY LASER LITHOTRISPY STONE BASKET EXTRACTION Anesthesia History 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 When Was Last Pacemaker Check QUESTION #4 FULL TEXT: You/Your Family Experience fever (hyperthermia) with Anesthesia Last Oral Intake Last Oral intake: Last Oral Intake NPO since 07:00 05/04/25 10:53 Meds taken in AM with sips of Yes 05/04/25 10:53 water? Meds patient instructed to take am of surgery PONV PONV - director of conservation: PONV - director of conservation Female Yes 05/03/25 08:32 HX of Motion Sickness No 05/03/25 08:32 HX of N/V After Surgery Yes 05/03/25 08:32 Non-Smoker Yes 05/03/25 08:32 Duration of Surgery greater No 05/03/25 08:32 than 60 minutes Number of Risk Factors 3 05/03/25 08:32 PONV Score Moderate Risk 05/03/25 08:32 Height & Weight Height & Weight: Anesthesia: Height & Weight Height 5 ft 7 in 05/04/25 10:53 Weight: 80.4 kg 05/04/25 10:53 Body Mass Index (BMI) 27.7 05/04/25 10:53 Respiratory Assessment Respiratory Assessment - director of conservation: Respiratory Tract Infection Hx - director of conservation Hx Respiratory Tract Infection No 05/03/25 08:32 STOP Sleep Apnea STOP Sleep Apnea - director of conservation: STOP Sleep Apnea - director of conservation Hx Hypertension No 05/03/25 08:32 Hx Sleep Apnea No 05/03/25 08:32 CPAP No 05/03/25 08:32 BIPAP Do you snore loudly (louder No 05/03/25 08:32 than talking or can be heard Do you often feel tired/ No 05/03/25 08:32 fatigued/ sleepy during daytime? Has anyone observed you stop No 05/03/25 08:32 breathing during sleep? STOP Results Negative 05/03/25 08:32 QUESTION #5 FULL TEXT : Do you snore loudly (louder than talking or can be heard through closed doors)? 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 Specify any problems Hx of Preganancy in last 3 No 05/03/25 08:32 Months Nurse Filling Out Transfusion VCHRISTIN 05/03/25 08:32 & Questions: Date: 05/03/25 05/03/25 08:32 Time: 08:34 05/03/25 08:32 Patient unable to answer at this time (ie. confused, unrespo /Reproduction History /Reproductive History - director of conservation: /Reproductive Hx- director of conservation Hx Now No 05/03/25 08:32 Gestational Age (in weeks): EDC: Hx Hx Para Hx Section SAB No 05/03/25 08:32 Active Medications Active Medications: Current Medications Generic Name Dose Route Start Last Admin Trade Name Freq PRN Reason Stop Dose Admin Ciprofloxacin 400 mg in 200 mls @ 200 mls/hr 05/04/25 12:20 Cipro IV 05/04/25 13:19 PREOP ONE Lactated Ringer's 1,000 mls @ 15 mls/hr 05/04/25 10:30 05/04/25 10:59 IV 15 mls/hr .Q48H LEROY Administration PFSH Medical History Kidney stone Wears glasses Post-menopausal History of steroid therapy Thyroid disease History of kidney stones Migraine headache Dietary restriction Non-smoker Home Medications ?Medication ?Instructions ?Recorded ?Last Taken ?Type cholecalciferol (vitamin D3) 125 5,000 unit PO DAILY 04/11/19 05/03/25 History mcg (5,000 unit) capsule prasterone (DHEA) 50 mg capsule 25 mg PO DAILY 04/11/19 05/03/25 History (DHEA) topiramate 100 mg capsule,extended 100 mg PO QHS migraines 04/11/19 05/03/25 History release 24 hr (Trokendi XR) desvenlafaxine succinate 25 mg 75 mg PO DAILY migraines 06/10/24 05/04/25 History tablet,extended release 24 hr (Pristiq) eptinezumab-jjmr 100 mg/mL 300 mg IV .COMPLEX [id number] 06/10/24 Unknown History intravenous solution (Vyepti) eptinezumab-jjmr 100 mg/mL 300 mg IV .[id number] migraines 06/10/24 Unknown History intravenous solution (Vyepti) hydroxyzine HCl 25 mg tablet 12.5 - 25 mg PO Q8H PRN PRN 06/10/24 Unknown History migraine headache levothyroxine 88 mcg tablet 88 mcg PO DAILY 06/10/24 05/04/25 History magnesium glycinate 100 mg (as 100 mg PO DAILY 06/10/24 05/03/25 History glycinate) tablet (Mag Glycinate) naratriptan 2.5 mg tablet 2.5 mg PO DAILY PRN 06/10/24 04/27/25 History ascorbic acid (vitamin C) 500 mg 500 mg PO DAILY 05/03/25 05/03/25 History tablet,extended release (C-500) ciprofloxacin HCl 500 mg tablet 500 mg PO BID 05/03/25 05/03/25 History (Cipro) d-mannose 500 mg capsule (AZO 500 mg PO DAILY 05/03/25 05/03/25 History D-Mannose) estradiol 0.025 mg/24 hr weekly 1 patch transdermal QWEEK 05/03/25 04/26/25 History transdermal patch ketorolac 10 mg tablet 10 mg PO Q8H PRN pain 05/03/25 05/03/25 History thiamine HCl (vitamin B1) 50 mg 50 mg PO DAILY 05/03/25 05/03/25 History tablet (Vitamin B-1) zinc gluconate 50 mg tablet 50 mg PO DAILY 05/03/25 05/03/25 History omega 3 350 mg-dha 235 mg-epa 90 cap PO DAILY 05/04/25 05/03/25 History mg-fish oil 597 mg capsule,delay rel ([place]-3) onabotulinumtoxinA 100 unit 05/04/25 03/30/25 History solution for injection (Botox) Allergy/AdvReac Type Severity Reaction Status Date / Time protriptyline Allergy Severe HYPOTENSION Verified 05/04/25 10:49 Sulfa (Sulfonamide Allergy Severe SORES IN Verified 05/04/25 10:49 Antibiotics) MOUTH sulfamethoxazole (From Allergy Severe NEEDS Verified 05/04/25 10:49 Bactrim) FOLLOW-UP trimethoprim (From Bactrim) Allergy Severe NEEDS Verified 05/04/25 10:49 FOLLOW-UP zonisamide Allergy Severe SWELLING Verified 05/04/25 10:49 TO FACE codeine Allergy Unknown Verified 05/04/25 10:49 hydromorphone (From Dilaudid) Allergy Low blood Verified 05/04/25 10:49 pressure Penicillins Allergy Unknown Verified 05/04/25 10:49 Surgical History Hx of cystoscopy History of cholecystectomy History of appendectomy Social History Smoking Status: Never smoker Review of Systems (Anesthesia) ROS Narrative System reviewed and no additional complaints, except as documented.
--- NOTE | 2025-05-04 11:53 | PCM.HP.STD ---
HPI - General General Date of Admission: 05/04/25 Date of Service: 05/04/25 Chief Complaint: Right flank pain and gross hematuria HPI Narrative AMOL ARIAS, is a 49 F who presents for ureteroscopic evaluation of her acute onset right flank pain with gross hematuria and possible calcification in the right ureter. Informed consent was obtained. She has been taking her antibiotics and the urine has been clearing yet the pain remains in the right upper quadrant and flank. PFSH Medical History Ureteral stone Right flank pain Gross hematuria Kidney stone Wears glasses Post-menopausal History of steroid therapy Thyroid disease History of kidney stones Migraine headache Dietary restriction Non-smoker Home Medications ?Medication ?Instructions ?Recorded ?Last Taken ?Type cholecalciferol (vitamin D3) 125 5,000 unit PO DAILY 04/11/19 05/03/25 History mcg (5,000 unit) capsule prasterone (DHEA) 50 mg capsule 25 mg PO DAILY 04/11/19 05/03/25 History (DHEA) topiramate 100 mg capsule,extended 100 mg PO QHS migraines 04/11/19 05/03/25 History release 24 hr (Trokendi XR) desvenlafaxine succinate 25 mg 75 mg PO DAILY migraines 06/10/24 05/04/25 History tablet,extended release 24 hr (Pristiq) eptinezumab-jjmr 100 mg/mL 300 mg IV .COMPLEX [id number] 06/10/24 Unknown History intravenous solution (Vyepti) eptinezumab-jjmr 100 mg/mL 300 mg IV .[id number] migraines 06/10/24 Unknown History intravenous solution (Vyepti) hydroxyzine HCl 25 mg tablet 12.5 - 25 mg PO Q8H PRN PRN 06/10/24 Unknown History migraine headache levothyroxine 88 mcg tablet 88 mcg PO DAILY 06/10/24 05/04/25 History magnesium glycinate 100 mg (as 100 mg PO DAILY 06/10/24 05/03/25 History glycinate) tablet (Mag Glycinate) naratriptan 2.5 mg tablet 2.5 mg PO DAILY PRN 06/10/24 04/27/25 History ascorbic acid (vitamin C) 500 mg 500 mg PO DAILY 05/03/25 05/03/25 History tablet,extended release (C-500) ciprofloxacin HCl 500 mg tablet 500 mg PO BID 05/03/25 05/03/25 History (Cipro) d-mannose 500 mg capsule (AZO 500 mg PO DAILY 05/03/25 05/03/25 History D-Mannose) estradiol 0.025 mg/24 hr weekly 1 patch transdermal QWEEK 05/03/25 04/26/25 History transdermal patch ketorolac 10 mg tablet 10 mg PO Q8H PRN pain 05/03/25 05/03/25 History thiamine HCl (vitamin B1) 50 mg 50 mg PO DAILY 05/03/25 05/03/25 History tablet (Vitamin B-1) zinc gluconate 50 mg tablet 50 mg PO DAILY 05/03/25 05/03/25 History omega 3 350 mg-dha 235 mg-epa 90 cap PO DAILY 05/04/25 05/03/25 History mg-fish oil 597 mg capsule,delay rel ([place]-3) onabotulinumtoxinA 100 unit 05/04/25 03/30/25 History solution for injection (Botox) Allergy/AdvReac Type Severity Reaction Status Date / Time protriptyline Allergy Severe HYPOTENSION Verified 05/04/25 10:49 Sulfa (Sulfonamide Allergy Severe SORES IN Verified 05/04/25 10:49 Antibiotics) MOUTH sulfamethoxazole (From Allergy Severe NEEDS Verified 05/04/25 10:49 Bactrim) FOLLOW-UP trimethoprim (From Bactrim) Allergy Severe NEEDS Verified 05/04/25 10:49 FOLLOW-UP zonisamide Allergy Severe SWELLING Verified 05/04/25 10:49 TO FACE codeine Allergy Unknown Verified 05/04/25 10:49 hydromorphone (From Dilaudid) Allergy Low blood Verified 05/04/25 10:49 pressure Penicillins Allergy Unknown Verified 05/04/25 10:49 Surgical History Hx of cystoscopy History of cholecystectomy History of appendectomy Social History Smoking Status: Never smoker ROS Constitutional Constitutional: Denies anorexia, chills, fatigue, fever(s) or weakness Eyes Eyes: Reports systems reviewed and no addt'l complaints, except as documented ENT HEENT: Reports systems reviewed and no addt'l complaints, except as documented Cardiovascular Cardiovascular: Reports abdominal pain and nausea; Denies chest pain, dyspnea, fatigue, vomiting or weakness in extremities Respiratory/Chest Respiratory/Chest: Denies chest congestion, chest tightness, cough, dyspnea or inability to speak Gastrointestinal Gastrointestinal: Reports abdominal pain and nausea; Denies constipation or vomiting Genitourinary Genitourinary: Reports flank pain, hematuria and urinary urgency; Denies dysuria Musculoskeletal Musculoskeletal: Reports systems reviewed and no addt'l complaints, except as documented; Denies difficulty walking, numbness or tingling Integumentary Integumentary: Reports systems reviewed and no addt'l complaints, except as documented Neurologic Neurologic: Reports systems reviewed and no addt'l complaints, except as documented Psychiatric Psychiatric: Reports systems reviewed and no addt'l complaints, except as documented Endocrine Endocrinology: Reports systems reviewed and no addt'l complaints, except as documented Hematologic/Lymphatic Hematologic/Lymphatic: Reports systems reviewed and no addt'l complaints, except as documented Allergic/Immunologic Allergic/Immunologic: Reports systems reviewed and no addt'l complaints, except as documented Vital Signs Vital Signs Vital Signs: 05/04/25 10:53 05/04/25 10:53 05/04/25 11:15 Temperature 97.4 F L 97.4 F L Temperature Source Temporal Pulse Rate 69 69 Respiratory Rate 16 16 Respiratory Pattern Normal Blood Pressure 112/83 H 112/83 H Blood Pressure Mean 92 Blood Pressure Source Monitor Blood Pressure Position Semi-Fowlers Blood Pressure Location Right Arm Pulse Ox 100 100 Oxygen Delivery Method Room Air Room Air Weight Weight: 80.4 kg Body Mass Index (BMI) 27.7 Physical Exam Const alert, oriented x3 and no apparent distress General Appearance: cooperative, comfortable, well kempt and well developed HEENT normocephalic, head/scalp atraumatic, hearing grossly normal bilaterally, external ears normal, external nose normal and moist oral mucous membranes Eyes General Eye: normal appearance of both eyes Neck supple General: trachea midline Lymph Lymphatic: no lymphedema noted Chest inspection of chest normal Chest: symmetrical chest wall rise Resp normal respiratory effort, normal air movement and no retractions Cardio regular rate and regular rhythm GI soft to palpation and non-distended GI Narrative: Right upper quadrant discomfort Narrative: Right CVA tender Bladder / Kidney Exam: CVA tenderness right Back/Spine General Back: CVA tenderness right Extremity normal to inspection Skin no rashes or lesions noted, no jaundice, no petechiae and no mottling Neuro oriented x3, CN's II-XII intact bilaterally and moves all extremities Psych mental status grossly normal, thought process normal and cooperative Assessment & Plan Assessment/Plan (1) Gross hematuria: (2) Right flank pain: (3) Ureteral stone: PLAN: Plan Proceed with cystoscopy, right ureteroscopy with possible laser lithotripsy and stone basket extraction, possible right ureteral stent insertion Informed consent was obtained
--- NOTE | 2025-05-04 11:58 | EX.PCM.DISCH ---
Discharge Instructions Diet Discharge Diet: No restrictions Activity Discharge Activity: Return to Normal Activity Dressing / Incision Call your doctor if you observe: Fever of 101 or Higher, Inability to urinate and Inability to have a bowel movement Follow Up Care Please Follow Up With: Jasmin Ordaz MD Test Results: Test results from this visit will be discussed in further detail at your follow-up appointment, if applicable. Discharge Plan Admission Attending Provider: Jasmin Ordaz Primary Care Provider: Care Physician,Tania Primary Instructions Print Language: Setswana Discharge Orders/Prescriptions Prescriptions: Continued DHEA 50 MG capsule 25 mg PO DAILY cholecalciferol (vitamin D3) 5,000 UNIT capsule 5,000 unit PO DAILY topiramate [Trokendi XR] 100 MG capsule,extended release 24hr 100 mg PO QHS desvenlafaxine succinate [Pristiq] 25 mg tablet extended release 24 hr 75 mg PO DAILY Mag Glycinate 100 mg tablet 100 mg PO DAILY levothyroxine 88 mcg tablet 88 mcg PO DAILY Vyepti 100 mg/mL solution 300 mg IV .COMPLEX Patient Comments: migraines Rx Instructions: 300 mg intravenously; hydroxyzine HCl 25 mg tablet 12.5 - 25 mg PO Q8H PRN PRN (Reason: migraine headache) Vyepti 100 mg/mL solution 300 mg IV .[id number] Patient Comments: due may 15, 3 months prior LD naratriptan 2.5 mg tablet 2.5 mg PO DAILY PRN Patient Comments: march repeat x1 ascorbic acid (vitamin C) [C-500] 500 mg tablet extended release 500 mg PO DAILY thiamine HCl (vitamin B1) [Vitamin B-1] 50 mg tablet 50 mg PO DAILY AZO D-Mannose 500 mg capsule 500 mg PO DAILY zinc gluconate 50 mg tablet 50 mg PO DAILY ketorolac 10 mg tablet 10 mg PO Q8H PRN (Reason: pain) estradiol 0.025 mg/24 hr patch weekly 1 patch transdermal QWEEK ciprofloxacin HCl [Cipro] 500 mg tablet 500 mg PO BID [place]-3 350 mg-235 mg- 90 mg-597 mg capsule,delayed release(DR/EC) PO DAILY Botox 100 unit recon soln Patient Comments: migraines; head, neck, shoulders estimate MARCH 2025 Referrals / Follow Up: Care Physician,No Primary [Primary Care Provider] - Disposition Disposition (needs filled in before D/C Order can be placed): Home, Self Care
--- NOTE | 2025-05-04 11:59 | PCM.OPRPT ---
Operative Report (Standard) Operative Information Date of Procedure: 05/04/25 Pre-Operative Diagnosis: Right flank pain, gross hematuria, possible right ureteral calculus Post-Operative Diagnosis: No stone Surgery/Procedure Performed: Cystoscopy, bilateral ureteroscopy retail service specialist: No Type of Anesthesia: General RN Documented Start/Stop Times: Operation Date: 05/04/25 12:20 Case Time Into Pre-Op 05/04/25 10:27 Out of Pre-Op 05/04/25 11:53 Anesthesia Start 05/04/25 11:55 Into Room 05/04/25 11:55 Procedure Start 05/04/25 12:13 Procedure End 05/04/25 12:27 Procedure Start Time: 12:13 Procedure Stop Time: 12:27 Select all DRAINS/GRAFTS/IMPLANTS that apply: None Estimated Blood Loss: <5cc Specimen collected: No Description of surgery: The patient is a 49-year-old female with gross hematuria and right flank pain. There was a question of a right ureteral calculus, I felt that the calcification was alongside of the ureter but it was in the general vicinity. We discussed the possibility of no findings today. Informed consent was obtained. The patient was taken to the operating room and placed on the operating room table. Anesthesia monitored the head, neck, airway, IV access and vital signs throughout the case. Once anesthesia was appropriately ministered, she was placed into dorsolithotomy position was prepped and draped in usual sterile fashion. The cystoscope was inserted through the urethra under direct visualization into the urinary bladder. Thorough cystoscopy revealed no evidence of mass, erythema, ulceration or foreign body. There was no evidence of etiology for the hematuria identified. The right ureteral orifice was gently cannulated with a 0.035 Glidewire that advanced easily into the renal pelvis is seen on fluoroscopy. A flexible ureteroscope was passed over the wire and advanced all the way into the renal pelvis without obstruction or difficulty. Each calyx was directly visualized revealing evidence of stones forming in the papilla but none large enough for removal. There is no evidence of mass and no gross hematuria identified. Due to the hematuria, the decision was made to proceed with ureteroscopy on the left side. The process was the same as on the right side with the same findings. The entire ureter on both sides was visualized without evidence of stone, foreign body, mass or other abnormality. The bladder was then emptied the patient was awakened and taken to the recovery room in good condition. There were no complications during this procedure. Surgical Findings: No ureteral stones identified, no gross hematuria or etiology identified aside from small forming calcifications in each papilla. Complications Complications: No Admit VTE Documentation VTE Present on Admission: Yes VTE Mechan Device Prophylaxis: SCD's VTE Pharm Prophylaxis ordered?: No Reason prophylaxis not ordered: Treatment Not Indicated
[2025-05-04] MEDS: Ciprofloxacin 400 MG/200 ML BAG 200 MG IV (12:10)
--- NOTE | 2025-05-04 12:55 | PCM.POST.ANE ---
Anesthesia: Postop Eval I Current Vital Signs Temperature: 97.3 F Pulse Rate: 74 Blood Pressure: 109/59 Respiratory Rate: 20 Pulse Ox: 100 Oxygen Delivery Method: Nasal Cannula Oxygen Flow Rate (L/min): 4 Assessment Airway patent: Yes Spontaneous unlabored respirations: Yes Mental status: Awake nausea: Yes Vomiting: Yes Anesthesia Complication: No Fluid Hydration Crystalloid volume administer (ml): 500 Total IV fluid infused: 500 Progress Note Anesthesia document: Postop Eval 1 completed: Yes
--- NOTE | 2025-05-04 19:07 | POSTOPAN2_ITS ---
Anesthesia Postop Eval I Sum Postop Eval Completion status Anesthesia document: Postop Eval 1 completed: Yes Anesthesia Postop Eval I Summary Anesthesia Postop Eval I Summary: Anesthesia Postop Eval I: Assessment Summary Airway patent Yes 05/04/25 12:57 [email or web address] Spontaneous unlabored Yes 05/04/25 12:57 [email or web address] respirations Mental status Awake 05/04/25 12:57 [email or web address] [email or web address] nausea Yes 05/04/25 12:57 [email or web address] Vomiting Yes 05/04/25 12:57 [email or web address] Anesthesia Postop Eval I: Fluid Summary Crystalloid volume administer 500 05/04/25 12:57 [email or web address] (ml) Colloids volume administered ( ml) Blood Product volume administered (ml) Total IV fluid infused 500 05/04/25 12:57 [email or web address] Anesthesia Postop Eval I: Summary Notes Anesthesia Complication No 05/04/25 12:57 [email or web address] Anesthesia Complication Comment: Post-operative progress note Anesthesia: Postop Eval II Evaluation Mental status: Awake and Calm Pain Level: 1 nausea: No Vomiting: No Complications Anesthesia Complication: No
--- NOTE | 2025-05-04 19:07 | PCM.POSTANE2 ---
Anesthesia Postop Eval I Sum Postop Eval Completion status Anesthesia document: Postop Eval 1 completed: Yes Anesthesia Postop Eval I Summary Anesthesia Postop Eval I Summary: Anesthesia Postop Eval I: Assessment Summary Airway patent Yes 05/04/25 12:57 [email or web address] Spontaneous unlabored Yes 05/04/25 12:57 [email or web address] respirations Mental status Awake 05/04/25 12:57 [email or web address] nausea Yes 05/04/25 12:57 [email or web address] Vomiting Yes 05/04/25 12:57 [email or web address] Anesthesia Postop Eval I: Fluid Summary Crystalloid volume administer 500 05/04/25 12:57 [email or web address] (ml) Colloids volume administered ( ml) Blood Product volume administered (ml) Total IV fluid infused 500 05/04/25 12:57 [email or web address] Anesthesia Postop Eval I: Summary Notes Anesthesia Complication No 05/04/25 12:57 [email or web address] Anesthesia Complication Comment: Post-operative progress note Anesthesia: Postop Eval II Evaluation Mental status: Awake and Calm Pain Level: 1 nausea: No Vomiting: No Complications Anesthesia Complication: No
== END 2025-05-04 15:10 | disposition home or self-care (01) ==
LOC: SDC 10:22 → AC 10:23
PROVIDERS: Referring Provider Urology; Visit Provider Urology
PROC: (CPT 52000; principal; 2025-05-04 12:10)
DX: R31.0 Gross hematuria (principal); R10.11 Right upper quadrant pain; Z87.442 Personal history of urinary calculi
CPT/HCPCS: 52000; 00910; 76000; C1769; J0744; J2405